=== PATIENT | male | born 1950 | race Caucasian/White ===

== ENCOUNTER → 2016-04-17 | Outpatient (CLI) | payer MEDICARE ==
[2016-04-17 10:13] LABS: CHLORIDE,CL 103 mmol/L (98-110); SODIUM,NA 136 mmol/L (136-146)
== END ==
LOC: MW.CHFP 09:36
PROVIDERS: ATTEND Student in an Organized Health Care Education/Training Program
DX: I10 Essential (primary) hypertension (principal); E78.1 Pure hyperglyceridemia; E11.9 Type 2 diabetes mellitus without complications; K11.8 Other diseases of salivary glands; F41.9 Anxiety disorder, unspecified; E11.65 Type 2 diabetes mellitus with hyperglycemia; E78.5 Hyperlipidemia, unspecified
CPT/HCPCS: 36415; 80053; 80061; 82044; 83036; 99214

== ENCOUNTER → 2016-06-14 | Outpatient (CLI) | payer MEDICARE | LOC: MW.CHFP 11:32 | PROVIDERS: ATTEND Student in an Organized Health Care Education/Training Program | DX: Z01.818 Encounter for other preprocedural examination (principal) | CPT/HCPCS: 36415; 85025; 85610 ==

== ENCOUNTER → 2016-06-15 | Outpatient (CLI) | payer MEDICARE ==
--- NOTE | 2016-06-15 12:36 | US ---
EXAMINATION: Ultrasound guided left parotid mass biopsy HISTORY: Mass COMPARISON: None TECHNIQUE: The procedure, risks, and benefits were discussed with the patient. Informed consent was obtained. A 2.2 cm left parotid nodule is noted which appears predominantly hypoechoic. The overlyi ng area was sterilely prepped and draped. 1% lidocaine was administered for local anesthesia. Using ultrasound guidance a total of 2 18-gauge core biopsies were obtained. The patient tolerated the pro cedure well. There are no immediate complications. IMPRESSION: Successful ultrasound-guided left parotid mass biopsy.
== END ==
LOC: MW.US 09:15
PROVIDERS: ATTEND Student in an Organized Health Care Education/Training Program
DX: K11.8 Other diseases of salivary glands (principal); D11.0 Benign neoplasm of parotid gland
CPT/HCPCS: 20206; 88307

== ENCOUNTER → 2016-06-20 | Outpatient (CLI) | payer MEDICARE | LOC: MW.CHFP 08:00 | PROVIDERS: ATTEND Student in an Organized Health Care Education/Training Program | DX: R22.0 Localized swelling, mass and lump, head (principal) | CPT/HCPCS: G0463 ==

== ENCOUNTER 2020-01-07 15:54 | Emergency (ER) | payer MEDICARE ==
--- NOTE | 2020-01-07 17:07 | EDM.PDOC ---
<Jacob Shearer - Last Filed: 01/07/20 19:30> ED HPI GENERAL MEDICAL PROBLEM - General Chief Complaint: Genitourinary Problem Stated Complaint: PAIN IN GROIN AREA Time Seen by Provider: 01/07/20 15:59 Source of Information: Reports: Patient, Old Records History Limitations: Reports: No Limitations - History of Present Illness INITIAL COMMENTS - FREE TEXT/NARRATIVE: 69/M w/PMH DM, HLD, HTN presenting with hematuria. 2 day history of new gross hematuria, no history of prior. Denies dysuria, fever, urinary frequency, abdominal or back pain, history of prostate disease, renal disease, epistaxis, bloody stools, hemoptysis, night sweats, or weight loss. ROS: A 10-point review of systems was negative, except as noted in the HPI (or in the ROS section of this note). Past medical history: Reviewed, no additional pertinent history. Surgical history: Reviewed in system, no additional pertinent history. Social history: Reviewed in system, no additional pertinent history. Family history: Reviewed in system, no additional pertinent history. PHYSICAL EXAM Vital signs reviewed. Nursing notes reviewed. Constitutional: Awake, alert, non-distressed. Head: Normocephalic, atraumatic. Eyes: EOMI, conjunctiva normal, no discharge, no scleral icterus. Ears, Nose, Throat: External ears and nose normal, moist oral mucosa. Cardiovascular: 2+ radial pulse, capillary refill less than 2 seconds. Pulmonary: normal work of breathing, no accessory muscle use. Abdomen/GI: Soft, nontender, nondistended, no guarding or rigidity, no masses. : Chaperoned exam by RAINA Russell. Uncircumcised penis, no hematuria noted, nontender scrotum, no physical external abnormalities noted to the penis or scrotum. Musculoskeletal: No deformities. Integumentary: Appropriate color for ethnicity, warm, dry, no pallor or jaundice, no rash. Neurologic: Alert, answering questions appropriately, normal speech, no facial droop, moving all extremities well. Psychiatric: Appropriate mood and affect, normal thought process. This patient was seen and evaluated during the 2019 SARS-CoV-2 novel coronavirus pandemic period. Community viral transmission is ongoing at time of this encounter and the emergency department is operating under pandemic response procedures. - Related Data Allergies Allergy/AdvReac Type Severity Reaction Status Date / Time No Known Allergies Allergy Verified 01/07/20 16:42 Home Meds: Home Meds Albuterol [Ventolin HFA] 1 - 2 puff INH Q4H PRN 12/24/17 [History] Aspirin 81 mg PO DAILY 12/24/17 [History] Budesonide/Formoterol [Symbicort 160-4.5 MCG] 2 puff INH DAILY 12/24/17 [History] Cyclobenzaprine [Flexeril] 10 mg PO TID PRN 12/24/17 [History] Escitalopram [Lexapro] 20 mg PO DAILY 12/24/17 [History] Exenatide Microspheres [Bydureon Pen] 2 mg SQ WEEKLY 12/24/17 [History] Fenofibrate 160 mg PO DAILY 12/24/17 [History] Gabapentin [Neurontin] 600 mg PO DAILY 12/24/17 [History] Glimepiride 4 mg PO DAILY 12/24/17 [History] Insulin Detemir [Levemir] 32 units SQ DAILY 12/24/17 [History] Lisinopril/Hydrochlorothiazide [Lisinopril-Hctz 20-12.5 mg Tab] 1 tab PO DAILY 12/24/17 [History] Zolpidem [Ambien] 10 mg PO BEDTIME 12/24/17 [History] atorvaSTATin Calcium [Atorvastatin Calcium] 80 mg PO DAILY 12/24/17 [History] sitaGLIPtin Phos/Metformin HCl [Janumet 50-1,000 MG] 2 tab PO DAILY 12/24/17 [History] Cefdinir [Omnicef] 300 mg PO BID #20 cap 01/07/20 [Rx] Past Medical History HEENT History: Reports: None Cardiovascular History: Reports: High Cholesterol, Hypertension Respiratory History: Reports: COPD Gastrointestinal History: Reports: None Genitourinary History: Reports: None Musculoskeletal History: Reports: None Neurological History: Reports: None Psychiatric History: Reports: Depression Endocrine/Metabolic History: Reports: Diabetes, Type II Dermatologic History: Reports: None - Infectious Disease History Infectious Disease History: Reports: None Social & Family History - Family History Family Medical History: No Pertinent Family History - Tobacco Use Tobacco Use Status *Q: Current Every Day Tobacco User Years of Tobacco use: 50 Packs/Tins Daily: 0.1 - Caffeine Use Caffeine Use: Reports: Coffee - Recreational Drug Use Recreational Drug Use: No ED ROS GENERAL - Review of Systems Review Of Systems: See Below ED EXAM, RENAL/ - Physical Exam Exam: See Below Course - Vital Signs Text/Narrative:: 69-year-old male presenting with new onset painless gross hematuria. Patient hemodynamically stable, afebrile, well-appearing, looks nontoxic. Differential diagnosis includes but is not limited to: UTI, malignancy, coagulopathy, anemia, and many others. 5:42 PM: Physical examination was unremarkable, patient has no pain. Urinalysis is concerning for possible infection. Given the patient's age, we are going to obtain noncontrast and contrasted CT scans of the abdomen/pelvis and labs are pending. 6:20 PM: Hemoglobin and platelet platelet counts are normal, as is white blood cell count. INR is normal. Metabolic panel shows elevated creatinine of 1.7, BUN 32, glucose 179. Urinalysis shows large occult blood, trace ketones, positive nitrites, trace leukocyte esterase, 2+ bacteria. Added on a urine culture. Patient is going for CT scans. Radiology reads pending at time of shift change. Signed out in-person to my colleague Dr. Rose. Please refer to his note for the disposition. Departure - Departure Disposition: Home, Self-Care 01 Condition: Good Clinical Impression: Gross hematuria, Acute kidney injury, UTI, Urinary tract infectious disease, Mass of urinary bladder - Discharge Information Instructions: Urinary Tract Infection, Adult, Cystoscopy Referrals: Dereck Gómez MD [Primary Care Provider] - Forms: ED Department Discharge Additional Instructions: You were seen and evaluated in the ER today secondary to blood in your urine. Your urinalysis reveals that you might have a urinary tract infection contributing to the blood in your urine. Of more concern is the CT scan of your abdomen pelvis. The CT scan of your abdomen pelvis reveals the possibility of having a form of cancer known as transitional cell carcinoma of your urinary bladder. You will be given the phone number for Dr. Maurizio, our urologist to follow-up with so that you can have a cystoscopy performed. This is the only way to tell for sure if you have cancer in your bladder as the cause of the blood in your urine. We will start you on an antibiotic called Omnicef to take twice a day for the next [address] Steven's office below as soon as possible to make an appointment to be seen by them. Please make sure you let them know that you were seen in the ER so they can help you make an appointment to be seen by him as soon as possible. [facility] - Urology [address] [place] [id number] The following information is given to patients seen in the emergency department who are being discharged to home. This information is to outline your options for follow-up care. We provide all patients seen in our emergency department with a follow-up referral. The need for follow-up, as well as the timing and circumstances, are variable depending upon the specifics of your emergency department visit. If you don't have a primary care physician on staff, we will provide you with a referral. We always advise you to contact your personal physician following an emergency department visit to inform them of the circumstance of the visit and for follow-up with them and/or the need for any referrals to a consulting specialist. The emergency department will also refer you to a specialist when appropriate. This referral assures that you have the opportunity for follow-up care with a specialist. All of these measure are taken in an effort to provide you with optimal care, which includes your follow-up. Under all circumstances we always encourage you to contact your private physician who remains a resource for coordinating your care. When calling for follow-up care, please make the office aware that this follow-up is from your recent emergency room visit. If for any reason you are refused follow-up, please contact the [facility] Emergency Department at and asked to speak to the emergency department charge nurse. [facility] - Primary Care [address] [place] [id number] [facility] [address] [place] [address] Sepsis Event Note (ED) - Evaluation Sepsis Screening Result: No Definite Risk <Dutch Rose - Last Filed: 01/07/20 20:13> ED HPI GENERAL MEDICAL PROBLEM - History of Present Illness INITIAL COMMENTS - FREE TEXT/NARRATIVE: 8 PM: Signout received at 7 PM. In brief this is a 69-year-old gentleman who presents ER today with gross hematuria and urinalysis that is equivocal for urinary tract infection. Concern regarding malignancy resulted in obtaining a CT scan of the abdomen pelvis. CT the abdomen pelvis with IV contrast: CT of the abdomen shows no findings in the upper urinary tracts to correlate with history of hematuria.Incidental note made of small renal cyst bilaterally. Minimal cholelithiasis with no sign of acute cholecystitis. CT of the pelvis shows irregular thickening of the anterior and left wall of the urinary bladder raising the possibility of transitional cell carcinoma of the bladder. Recommend correlation with cystoscopy. Mild enlargement of the prostate. CT of the abdomen pelvis was concerning for transitional cell CA of the bladder. Given the abnormal urinalysis, patient will be started on antibiotics for UTI however patient will definitely need to follow-up with urology for a outpatient cystoscopy. I have discussed the results of the CT scan and the plan with the patient and he is in complete agreement with following up with an outpatient. Patient will be given 1 dose of IV Rocephin in the ED and will be started on Omnicef as an outpatient. Reassessment at the time of disposition demonstrates that the patient is in no acute distress. The patient has remained stable throughout the entire ED visit and is without objective evidence for acute process requiring urgent intervention or hospitalization. The patient is stable for discharge, counseling is provided as documented above, discussed symptomatic treatment and specific conditions for return. I have spoken with the patient/caregiver and discussed todays findings, in addition to providing specific details for the plan of care. Questions are answered and there is agreement with the plan. Course - Vital Signs Last Recorded V/S: Last Vital Signs Temp 98.2 F 01/07/20 16:42 Pulse 86 01/07/20 16:42 Resp 18 01/07/20 16:42 BP 144/62 H 01/07/20 16:42 Pulse Ox 92 L 01/07/20 16:42 - Orders/Labs/Meds Orders: Active Orders 24 hr Category Date Time Status CULTURE URINE [RM] Stat Lab 01/07/20 16:38 Received Labs: Laboratory Tests 01/07/20 01/07/20 01/07/20 Range/Units 16:38 17:35 17:35 WBC 9.16 (4.0-11.0) K/uL RBC 4.37 L (4.50-5.90) M/uL Hgb 13.6 (13.0-17.0) g/dL Hct 41.5 (38.0-50.0) % MCV 95.0 (80.0-98.0) fL MCH 31.1 (27.0-32.0) pg MCHC 32.8 (31.0-37.0) g/dL RDW Std Deviation 46.4 (28.0-62.0) fl RDW Coeff of Sherita 13 (11.0-15.0) % Plt Count 201 (150-400) K/uL MPV 13.00 H (7.40-12.00) fL Neut % (Auto) 61.4 (48.0-80.0) % Lymph % (Auto) 21.1 (16.0-40.0) % [place] % (Auto) 7.0 (0.0-15.0) % Eos % (Auto) 10.4 H (0.0-7.0) % Baso % (Auto) 0.1 (0.0-1.5) % Neut # (Auto) 5.6 (1.4-5.7) K/uL Lymph # (Auto) 1.9 (0.6-2.4) K/uL [place] # (Auto) 0.6 (0.0-0.8) K/uL Eos # (Auto) 1.0 H (0.0-0.7) K/uL Baso # (Auto) 0.0 (0.0-0.1) K/uL Nucleated RBC % 0.0 /100WBC Nucleated RBCs # 0 K/uL INR 1.06 Sodium (136-148) mmol/L Potassium (3.5-5.1) mmol/L Chloride (98-107) mmol/L Carbon Dioxide (21.0-32.0) mmol/L BUN (7.0-18.0) mg/dL Creatinine (0.8-1.3) mg/dL Est Cr Clr Drug Dosing mL/min Estimated GFR (MDRD) ml/min Glucose (74-106) mg/dL Calcium (8.5-10.1) mg/dL Total Bilirubin (0.2-1.0) mg/dL AST (15-37) IU/L ALT (14-63) IU/L Alkaline Phosphatase (46-116) U/L Total Protein (6.4-8.2) g/dL Albumin (3.4-5.0) g/dL Globulin (2.6-4.0) g/dL Albumin/Globulin Ratio (0.9-1.6) Urine Color RED Urine Appearance CLOUDY Urine pH 5.0 (5.0-8.0) Ur Specific Draper >= 1.030 (1.001-1.035) Urine Protein 100 H (NEGATIVE) mg/dL Urine Glucose (UA) NEGATIVE (NEGATIVE) mg/dL Urine Ketones TRACE H (NEGATIVE) mg/dL Urine Occult Blood LARGE H (NEGATIVE) Urine Nitrite POSITIVE H (NEGATIVE) Urine Bilirubin NEGATIVE (NEGATIVE) Urine Urobilinogen 0.2 (<2.0) EU/dL Ur Leukocyte Esterase TRACE H (NEGATIVE) Urine RBC TOO NUMEROUS TO CT (0-2/HPF) Urine WBC 8-10 (0-5/HPF) Ur Epithelial Cells RARE (NONE-FEW) Amorphous Sediment MODERATE (NEGATIVE) Urine Bacteria 2+ H (NEGATIVE) 01/07/20 Range/Units 17:35 WBC (4.0-11.0) K/uL RBC (4.50-5.90) M/uL Hgb (13.0-17.0) g/dL Hct (38.0-50.0) % MCV (80.0-98.0) fL MCH (27.0-32.0) pg MCHC (31.0-37.0) g/dL RDW Std Deviation (28.0-62.0) fl RDW Coeff of Sherita (11.0-15.0) % Plt Count (150-400) K/uL MPV (7.40-12.00) fL Neut % (Auto) (48.0-80.0) % Lymph % (Auto) (16.0-40.0) % [place] % (Auto) (0.0-15.0) % Eos % (Auto) (0.0-7.0) % Baso % (Auto) (0.0-1.5) % Neut # (Auto) (1.4-5.7) K/uL Lymph # (Auto) (0.6-2.4) K/uL [place] # (Auto) (0.0-0.8) K/uL Eos # (Auto) (0.0-0.7) K/uL Baso # (Auto) (0.0-0.1) K/uL Nucleated RBC % /100WBC Nucleated RBCs # K/uL INR Sodium 137 (136-148) mmol/L Potassium 4.6 (3.5-5.1) mmol/L Chloride 103 (98-107) mmol/L Carbon Dioxide 26.0 (21.0-32.0) mmol/L BUN 32 H (7.0-18.0) mg/dL Creatinine 1.7 H (0.8-1.3) mg/dL Est Cr Clr Drug Dosing 41.15 mL/min Estimated GFR (MDRD) 39.9 ml/min Glucose 179 H (74-106) mg/dL Calcium 9.4 (8.5-10.1) mg/dL Total Bilirubin 0.3 (0.2-1.0) mg/dL AST 13 L (15-37) IU/L ALT 28 (14-63) IU/L Alkaline Phosphatase 35 L (46-116) U/L Total Protein 7.4 (6.4-8.2) g/dL Albumin 4.3 (3.4-5.0) g/dL Globulin 3.1 (2.6-4.0) g/dL Albumin/Globulin Ratio 1.4 (0.9-1.6) Urine Color Urine Appearance Urine pH (5.0-8.0) Ur Specific [place] (1.001-1.035) Urine Protein (NEGATIVE) mg/dL Urine Glucose (UA) (NEGATIVE) mg/dL Urine Ketones (NEGATIVE) mg/dL Urine Occult Blood (NEGATIVE) Urine Nitrite (NEGATIVE) Urine Bilirubin (NEGATIVE) Urine Urobilinogen (<2.0) EU/dL Ur Leukocyte Esterase (NEGATIVE) Urine RBC (0-2/HPF) Urine WBC (0-5/HPF) Ur Epithelial Cells (NONE-FEW) Amorphous Sediment (NEGATIVE) Urine Bacteria (NEGATIVE) Meds: Medications Discontinued Medications Generic Name Dose Route Start Last Admin Trade Name Freq PRN Reason Stop Dose Admin Lactated Ringer's 1,000 mls @ 999 mls/hr 01/07/20 18:29 01/07/20 19:01 Ringers, Lactated IV 01/07/20 19:29 999 mls/hr .BOLUS ONE Administration Ceftriaxone Sodium/Dextrose 1 50 mls @ 100 mls/hr 01/07/20 19:10 01/07/20 19:29 gm/ Premix IV 01/07/20 19:39 100 mls/hr ONETIME ONE Administration Iopamidol 100 ml 01/07/20 18:28 01/07/20 18:35 Isovue Multipack-370 (76%) IVPUSH 01/07/20 18:29 100 ml ONETIME STA Administration Departure - Departure Time of Disposition: 20:10 Sepsis Event Note (ED) - Focused Exam Vital Signs: Vital Signs Temp Pulse Resp BP Pulse Ox 01/07/20 16:42 98.2 F 86 18 144/62 H 92 L
[2020-01-07 18:14] LABS: POTASSIUM,K 4.6 mmol/L (3.5-5.1)
[2020-01-07] MEDS ORDERED: Iopamidol 755 MG/ML 500 ML Multipack Bottle IVPUSH STA (18:28)
[2020-01-07] MEDS ORDERED: Lactated Ringers 1,000 ML IV ONE (18:29)
[2020-01-07] MEDS ORDERED: cefTRIAXone 1 GM in Premix Bag 1 BAG IV ONE (19:10)
--- NOTE | 2020-01-07 19:19 | CT ---
INDICATION: Gross hematuria for 1 day. COMPARISON: None available TECHNIQUE: CT examination of the abdomen and pelvis was performed before and after the uneventful intravenous administration of 100 cc of Isovue 370 while 3 mm thick axial sections were obtained from the lung bases through the pubic symphysis. Delayed images were not obtained. Oral contrast was not administered. Please note that all CT scans at this facility use dose modulation, iterative reconstruction, and/or weight-based dosing when appropriate to reduce radiation dose to as low as reasonably achievable. FINDINGS: In the abdomen, the liver, spleen, pancreas, and adrenals are normal in appearance. The right kidney has a cyst in the interpolar cortex measuring 1.5 centimeters in diameter. A few other tiny cortical cysts are seen in the right kidney. The left kidney has a 0.9 centimeter cyst arising from the upper pole cortex. There is minimal cholelithiasis, with several tiny dependent calculi in the gallbladder. There is no sign of acute cholecystitis, with no sign of gallbladder wall thickening or pericholecystic fluid. The abdominal aorta is normal in caliber with no sign of dilatation. There is no sign of retroperitoneal mass or adenopathy. The stomach, loops of small bowel, and colon in the abdomen are normal in appearance. There is a tiny fat containing periumbilical hernia. The cecum is flipped up into the right supraumbilical region. The appendix is normal in appearance. The loops of small bowel and colon in the pelvis are normal in appearance. The prostate is mildly enlarged and is otherwise normal in appearance. There is moderate irregular thickening of the anterior and left bladder wall, worrisome for a transitional cell carcinoma of the bladder. Recommend correlation with cystoscopy. There is no sign of pelvic or inguinal mass or adenopathy. There is a moderate-sized left direct inguinal hernia containing a short segment nondistended sigmoid colon. There is no sign of proximal sigmoid colonic obstruction. There is a small fat containing right direct inguinal hernia. There is no sign of free air or free fluid in the abdomen or pelvis. The lung bases are clear. There is fusion of the sacroiliac joints. There is mild anterior wedging of T11 through L1, probably Scheuermann`s disease and unlikely to be of any clinical significance. Incidental note is made of a bone island in the right pubic symphysis. There is mild anterior displacement and anterior angulation of the distal for coccygeal segments, representing an old, healed coccygeal fracture. IMPRESSION: CT of the abdomen shows no findings in the upper urinary tracts to correlate with history of hematuria. Incidental note made of small renal cysts bilaterally. Minimal cholelithiasis with no sign of acute cholecystitis. CT of the pelvis shows irregular thickening of the anterior and left wall of the urinary bladder raising the possibility of transitional cell carcinoma of the bladder. Recommend correlation with cystoscopy. Mild enlargement of the prostate. Please note that all CT scans at this facility use dose modulation, iterative reconstruction, and/or weight-based dosing when appropriate to reduce radiation dose to as low as reasonably achievable. Dictated by Miguel Dubon MD @ Jan 07 2020 7:07PM Signed by Dr. Miguel Dubon @ Jan 07 2020 7:18PM
== END 2020-01-07 20:34 | disposition home or self-care (01) ==
LOC: MW.ED 15:54
DX: R31.0 Gross hematuria (principal); N39.0 Urinary tract infection, site not specified; N32.89 Other specified disorders of bladder; N17.9 Acute kidney failure, unspecified; I10 Essential (primary) hypertension; E78.00 Pure hypercholesterolemia, unspecified; J44.9 Chronic obstructive pulmonary disease, unspecified; E11.9 Type 2 diabetes mellitus without complications; F32.9 Major depressive disorder, single episode, unspecified; F17.210 Nicotine dependence, cigarettes, uncomplicated; Z79.82 Long term (current) use of aspirin; Z79.899 Other long term (current) drug therapy; Z79.4 Long term (current) use of insulin
CPT/HCPCS: 36415; 74178; 80053; 81001; 85025; 85610; 87086; 96365; 99284; J0696; J7120; Q9967

== ENCOUNTER 2021-02-15 17:41 | Emergency (ER) | payer MEDICARE ==
[2021-02-15] MEDS ORDERED: Sodium Chloride 0.9% 2.5 ML Syringe FLUSH PRN (18:06)
[2021-02-15] MEDS ORDERED: Sodium Chloride 0.9% 10 ML Syringe FLUSH PRN (18:06)
[2021-02-15] MEDS ORDERED: methylPREDNISolone Sodium Succinate 125 MG/2 ML SDV IVPUSH ONE (18:12)
[2021-02-15] MEDS ORDERED: Albuterol/Ipratropium 3.0-0.5 MG/3 ML Neb Soln NEB ONE (18:16)
[2021-02-15 19:00] LABS: CORONAVIRUS COVID-19 NAA NEGATIVE (NEGATIVE); INFLUENZA A NAA POSITIVE (NEGATIVE); INFLUENZA B NAA NEGATIVE (NEGATIVE)
[2021-02-15 19:07] LABS: BLOOD UREA NITROGEN,BUN 25 mg/dL (7.0-18.0); CHLORIDE,CL 100 mmol/L (98-107); GLUCOSE RANDOM 207 mg/dL (74-106); POTASSIUM,K 4.6 mmol/L (3.5-5.1); SODIUM,NA 135 mmol/L (136-148)
== END 2021-02-15 19:50 | disposition home or self-care (01) ==
LOC: MW.ED 17:41
DX: J10.1 Influenza due to other identified influenza virus with other respiratory manifestations (principal); J43.9 Emphysema, unspecified; E11.9 Type 2 diabetes mellitus without complications; F17.210 Nicotine dependence, cigarettes, uncomplicated; Z20.822 Contact with and (suspected) exposure to COVID-19; Z79.82 Long term (current) use of aspirin; Z79.899 Other long term (current) drug therapy; Z79.4 Long term (current) use of insulin
CPT/HCPCS: 0240U; 36415; 71045; 80053; 84484; 85025; 93005; 96374; 99285; J2930; J7620-GY

== ENCOUNTER 2021-02-21 07:46 | Inpatient (IN) | payer MEDICARE ==
[2021-02-21] MEDS ORDERED: methylPREDNISolone Sodium Succinate 125 MG/2 ML SDV IVPUSH ONE (08:10)
[2021-02-21] MEDS ORDERED: Sodium Chloride 0.9% 10 ML Syringe FLUSH PRN (08:10)
[2021-02-21] MEDS ORDERED: Sodium Chloride 0.9% 2.5 ML Syringe FLUSH PRN (08:10)
[2021-02-21] MEDS ORDERED: Albuterol/Ipratropium 3.0-0.5 MG/3 ML Neb Soln NEB ONE (08:10)
[2021-02-21] MEDS ORDERED: Diltiazem 25 MG/5 ML SDV IVPUSH ONE (08:13)
[2021-02-21] MEDS ORDERED: Diltiazem 100 MG in Sodium Chloride 0.9% 100 ML IV SCH (08:15)
[2021-02-21 08:31] LABS: BLOOD UREA NITROGEN,BUN 54 mg/dL (7.0-18.0); CARBON DIOXIDE,CO2 25.9 mmol/L (21.0-32.0); CHLORIDE,CL 91 mmol/L (98-107); POTASSIUM,K 4.8 mmol/L (3.5-5.1); SODIUM,NA 126 mmol/L (136-148)
[2021-02-21 08:34] LABS: GLUCOSE RANDOM 523 mg/dL (74-106)
[2021-02-21] MEDS ORDERED: Furosemide 40 MG/4 ML VIAL IVPUSH ONE (08:35)
[2021-02-21] MEDS ORDERED: LORazepam 2 MG/ML SDV IVPUSH ONE (08:38)
[2021-02-21] MEDS ORDERED: Piperacillin/Tazobactam 3.375 GM in Sodium Chloride 0.9% 50 ML IV ONE (08:57)
[2021-02-21] MEDS ORDERED: Sodium Chloride 0.9% 500 ML IV SCH (09:30)
[2021-02-21] MEDS ORDERED: VANCOmycin 1.75 GM/350 ML 1.75 GM in Premix Bag 1 BAG IV SCH (09:30)
[2021-02-21] MEDS ORDERED: Glucagon,Human Recombinant 1 MG Vial IM PRN ×2 (09:34→15:48)
[2021-02-21] MEDS ORDERED: Insulin Regular, Human 100 Units/ML 10 ML Vial IVPUSH ONE ×2 (09:34→15:48)
[2021-02-21] MEDS ORDERED: 50% Dextrose in Water 50 ML Syringe IVPUSH PRN ×2 (09:34→15:48)
[2021-02-21 09:57] LABS: CORONAVIRUS COVID-19 NAA NEGATIVE (NEGATIVE); INFLUENZA A NAA POSITIVE (NEGATIVE); INFLUENZA B NAA NEGATIVE (NEGATIVE)
[2021-02-21] MEDS ORDERED: Haloperidol Lactate 5 MG/ML SDV IM ONE (11:46)
[2021-02-21] MEDS ORDERED: diphenhydrAMINE 50 MG/ML SDV IVPUSH ONE (11:46)
[2021-02-21] MEDS ORDERED: Iopamidol 755 MG/ML 500 ML Multipack Bottle IVPUSH STA (12:46)
[2021-02-21] MEDS ORDERED: Sodium Chloride 0.9% 1,000 ML IV ONE (13:56)
[2021-02-21] MEDS ORDERED: Acetaminophen 325 MG Tab PO PRN (17:00)
[2021-02-21] MEDS ORDERED: Ondansetron 4 MG/2 ML SDV IVPUSH PRN (17:00)
[2021-02-21] MEDS ORDERED: Ondansetron 4 MG Tab.DIS PO PRN (17:00)
[2021-02-21] MEDS ORDERED: Lactated Ringers 1,000 ML IV SCH (18:31)
[2021-02-21] MEDS ORDERED: Insulin Regular in 0.9 % NACL 100 ML IV SCH (18:55)
[2021-02-21] MEDS: Albuterol/Ipratropium 3.0-0.5 MG/3 ML Neb Soln NEB PRN ×2 (19:27→23:58)
[2021-02-21] MEDS: Lactated Ringers 1,000 ML IV SCH (19:55)
[2021-02-21] MEDS ORDERED: Docusate Sodium 100 MG Cap PO PRN (21:00)
[2021-02-21] MEDS: Pantoprazole 40 MG in Sodium Chloride 0.9% 10 ML IVPUSH SCH (21:24)
[2021-02-22] MEDS ORDERED: Diltiazem 100 MG in Sodium Chloride 0.9% 100 ML IV SCH ×2 (00:15→17:45)
[2021-02-22] MEDS: Lactated Ringers 1,000 ML IV SCH ×2 (03:59→21:51)
[2021-02-22 06:40] LABS: CARBON DIOXIDE,CO2 26.9 mmol/L (21.0-32.0); POTASSIUM,K 4.4 mmol/L (3.5-5.1)
[2021-02-22] MEDS ORDERED: Cefepime 2 GM in Premix Bag 1 BAG IV SCH (08:00)
[2021-02-22] MEDS: Hydrochlorothiazide 12.5 MG Cap PO SCH (08:13)
[2021-02-22] MEDS: atorvaSTATin 40 MG Tab PO SCH (08:14)
[2021-02-22] MEDS: Lisinopril 10 MG Tab PO SCH (08:14)
[2021-02-22] MEDS: Sertraline 25 MG Tab PO SCH (08:15)
[2021-02-22] MEDS: Albuterol/Ipratropium 3.0-0.5 MG/3 ML Neb Soln NEB PRN ×4 (08:15→22:09)
[2021-02-22] MEDS: Pantoprazole 40 MG in Sodium Chloride 0.9% 10 ML IVPUSH SCH (08:15)
[2021-02-22] MEDS ORDERED: Levofloxacin/Dextrose 5%-Water 750 MG in Premix Bag 1 BAG IV SCH ×2 (08:30→10:00)
[2021-02-22] MEDS: Cefepime 2 GM in Premix Bag 1 BAG IV SCH ×2 (08:50→21:41)
[2021-02-22] MEDS ORDERED: Non-Formulary Medication 1 Each (Lisinopril/Hydrochlorothiazide [Lisinopril-Hctz 20-12.5 M PO SCH (09:00)
[2021-02-22] MEDS ORDERED: Oseltamivir 75 MG Cap PO SCH (10:45)
[2021-02-22 11:41] LABS: HEMOGLOBIN A1C 10.1 %
[2021-02-22] MEDS: Insulin Detemir 100 Units/ML 3 ML Pen SUBCUT SCH (11:50)
[2021-02-22] MEDS ORDERED: Glucagon,Human Recombinant 1 MG Vial IM PRN (11:52)
[2021-02-22] MEDS ORDERED: 50% Dextrose in Water 50 ML Syringe IVPUSH PRN (11:52)
[2021-02-22] MEDS: Enoxaparin 100 MG/1 ML Syringe SUBCUT SCH ×2 (12:01→23:23)
[2021-02-22] MEDS: Diltiazem IR 30 MG Tab PO SCH ×3 (12:03→23:40)
[2021-02-22] MEDS: predniSONE 20 MG Tab PO ONE ×2 (13:21→17:06)
[2021-02-22] MEDS: Insulin Aspart 100 Units/ML 3 ML Pen SUBCUT SCH (17:06)
[2021-02-22] MEDS: methylPREDNISolone Sodium Succinate 40 MG/1 ML SDV IV SCH (21:05)
[2021-02-22] MEDS: Oseltamivir Phosphate 30 MG Capsule PO SCH ×2 (21:05→23:40)
[2021-02-23] MEDS: Insulin Aspart 100 Units/ML 3 ML Pen SUBCUT SCH ×4 (04:07→17:30)
[2021-02-23] MEDS: Diltiazem IR 30 MG Tab PO SCH (05:55)
[2021-02-23] MEDS: Lactated Ringers 1,000 ML IV SCH ×2 (05:59→17:26)
[2021-02-23] MEDS: Albuterol/Ipratropium 3.0-0.5 MG/3 ML Neb Soln NEB PRN ×5 (06:34→23:56)
[2021-02-23] MEDS: Diltiazem 100 MG in Sodium Chloride 0.9% 100 ML IV SCH ×2 (07:23→16:51)
[2021-02-23 07:25] LABS: CARBON DIOXIDE,CO2 25.7 mmol/L (21.0-32.0); POTASSIUM,K 4.6 mmol/L (3.5-5.1)
[2021-02-23] MEDS: Pantoprazole 40 MG in Sodium Chloride 0.9% 10 ML IVPUSH SCH (07:59)
[2021-02-23] MEDS: methylPREDNISolone Sodium Succinate 40 MG/1 ML SDV IV SCH ×2 (08:00→20:40)
[2021-02-23] MEDS ORDERED: predniSONE 20 MG Tab PO SCH (08:00)
[2021-02-23] MEDS: Oseltamivir Phosphate 30 MG Capsule PO SCH ×2 (08:01→20:38)
[2021-02-23] MEDS: Lisinopril 10 MG Tab PO SCH (08:01)
[2021-02-23] MEDS: Sertraline 25 MG Tab PO SCH (08:01)
[2021-02-23] MEDS: atorvaSTATin 40 MG Tab PO SCH (08:01)
[2021-02-23] MEDS: Hydrochlorothiazide 12.5 MG Cap PO SCH (08:02)
[2021-02-23] MEDS: Insulin Detemir 100 Units/ML 3 ML Pen SUBCUT SCH (08:03)
[2021-02-23] MEDS: Cefepime 2 GM in Premix Bag 1 BAG IV SCH ×2 (09:06→20:39)
[2021-02-23] MEDS ORDERED: Insulin Glargine,Human Rec. Analog 100 Units/ML 3 ML Pen SUBCUT STA (09:48)
[2021-02-23] MEDS: Enoxaparin 100 MG/1 ML Syringe SUBCUT SCH ×2 (10:35→22:51)
[2021-02-23] MEDS: Levofloxacin/Dextrose 5%-Water 750 MG in Premix Bag 1 BAG IV SCH (10:35)
[2021-02-23] MEDS: Insulin Regular in 0.9 % NACL 100 ML IV SCH (22:58)
[2021-02-24] MEDS: Lactated Ringers 1,000 ML IV SCH ×3 (01:31→17:25)
[2021-02-24] MEDS: Albuterol/Ipratropium 3.0-0.5 MG/3 ML Neb Soln NEB PRN ×4 (04:01→20:32)
[2021-02-24] MEDS ORDERED: Benzonatate 100 MG Cap PO PRN (05:15)
[2021-02-24] MEDS: Insulin Aspart 100 Units/ML 3 ML Pen SUBCUT SCH ×3 (07:32→17:46)
[2021-02-24] MEDS: Lisinopril 10 MG Tab PO SCH (08:05)
[2021-02-24] MEDS: atorvaSTATin 40 MG Tab PO SCH (08:06)
[2021-02-24] MEDS: Oseltamivir Phosphate 30 MG Capsule PO SCH ×2 (08:06→20:32)
[2021-02-24] MEDS: Sertraline 25 MG Tab PO SCH (08:06)
[2021-02-24] MEDS: methylPREDNISolone Sodium Succinate 40 MG/1 ML SDV IV SCH ×2 (08:07→20:31)
[2021-02-24] MEDS: Pantoprazole 40 MG in Sodium Chloride 0.9% 10 ML IVPUSH SCH (08:12)
[2021-02-24] MEDS: Hydrochlorothiazide 12.5 MG Cap PO SCH (08:12)
[2021-02-24 08:25] LABS: CARBON DIOXIDE,CO2 28.8 mmol/L (21.0-32.0); POTASSIUM,K 4.2 mmol/L (3.5-5.1)
[2021-02-24] MEDS: Insulin Glargine,Human Rec. Analog 100 Units/ML 3 ML Pen SUBCUT SCH (08:44)
[2021-02-24] MEDS ORDERED: VANCOmycin 1.5 GM/300 ML 1.5 GM in Premix Bag 1 BAG IV SCH (09:00)
[2021-02-24] MEDS: Cefepime 2 GM in Premix Bag 1 BAG IV SCH ×2 (09:42→20:32)
[2021-02-24] MEDS: Levofloxacin/Dextrose 5%-Water 750 MG in Premix Bag 1 BAG IV SCH (10:55)
[2021-02-24] MEDS: Enoxaparin 100 MG/1 ML Syringe SUBCUT SCH ×2 (10:55→23:08)
[2021-02-24] MEDS: Diltiazem 100 MG in Sodium Chloride 0.9% 100 ML IV SCH (12:40)
[2021-02-24] MEDS ORDERED: Iopamidol 755 MG/ML 500 ML Multipack Bottle IVPUSH STA (14:21)
[2021-02-24] MEDS: Morphine 2 MG/ML SYRINGE IVPUSH PRN ×2 (16:24→21:24)
[2021-02-25] MEDS: Albuterol/Ipratropium 3.0-0.5 MG/3 ML Neb Soln NEB PRN ×2 (00:20→05:46)
[2021-02-25] MEDS: Insulin Regular in 0.9 % NACL 100 ML IV SCH (00:26)
[2021-02-25] MEDS: Morphine 2 MG/ML SYRINGE IVPUSH PRN (01:58)
[2021-02-25 07:51] LABS: BLOOD UREA NITROGEN,BUN 71 mg/dL (7.0-18.0); CARBON DIOXIDE,CO2 26.2 mmol/L (21.0-32.0); CHLORIDE,CL 107 mmol/L (98-107); GLUCOSE RANDOM 146 mg/dL (74-106); POTASSIUM,K 4.7 mmol/L (3.5-5.1); SODIUM,NA 143 mmol/L (136-148)
[2021-02-25] MEDS: Insulin Aspart 100 Units/ML 3 ML Pen SUBCUT SCH (08:25)
[2021-02-25] MEDS: Insulin Glargine,Human Rec. Analog 100 Units/ML 3 ML Pen SUBCUT SCH (08:25)
[2021-02-25] MEDS: Pantoprazole 40 MG in Sodium Chloride 0.9% 10 ML IVPUSH SCH (08:30)
[2021-02-25] MEDS: methylPREDNISolone Sodium Succinate 40 MG/1 ML SDV IV SCH (08:33)
[2021-02-25] MEDS: Sertraline 25 MG Tab PO SCH (08:33)
[2021-02-25] MEDS: Lisinopril 10 MG Tab PO SCH (08:34)
[2021-02-25] MEDS: atorvaSTATin 40 MG Tab PO SCH (08:34)
[2021-02-25] MEDS: Hydrochlorothiazide 12.5 MG Cap PO SCH (08:35)
== END 2021-02-25 09:30 | DRG 871 ==
LOC: MW.ED 07:46 → MW.ICU 13:55 → UNDOADMIN 14:49 → MW.ICU 14:49
PROVIDERS: ADMIT Student in an Organized Health Care Education/Training Program; ATTEND Student in an Organized Health Care Education/Training Program
DX: A41.89 Other specified sepsis (principal); I11.0 Hypertensive heart disease with heart failure; J18.9 Pneumonia, unspecified organism; J96.01 Acute respiratory failure with hypoxia; I50.1 Left ventricular failure, unspecified; I48.91 Unspecified atrial fibrillation; E11.65 Type 2 diabetes mellitus with hyperglycemia; N17.9 Acute kidney failure, unspecified; E87.1 Hypo-osmolality and hyponatremia; J10.1 Influenza due to other identified influenza virus with other respiratory manifestations; J43.9 Emphysema, unspecified; K80.80 Other cholelithiasis without obstruction; E78.00 Pure hypercholesterolemia, unspecified; E11.9 Type 2 diabetes mellitus without complications; F32.A Depression, unspecified; Z79.4 Long term (current) use of insulin; Z79.899 Other long term (current) drug therapy; Z20.822 Contact with and (suspected) exposure to COVID-19
CPT/HCPCS: 0240U; 36415; 36600; 71045; 71275; 74018; 74177; 76705; 80053; 80202; 81001; 82803; 82947; 83036; 83605; 83735; 83880; 84484; 85025; 85027; 85379; 85610; 87040; 87077; 87186; 93005; 94640; 94660; 96365; 96366; 96368; 96372; 96375; 96376; 99291; 99292; 99223; 99233; 99239; A9270-GY; C9113; J0692; J1200; J1630; J1650; J1815; J1815-GY; J1940; J1956; J2060; J2270; J2405; J2543; J2920; J2930; J3370; J3490; J7030; J7040; J7050; J7120; J7620-GY; Q9967

== ENCOUNTER 2021-10-01 10:43 | Inpatient (IN) | payer MEDICARE ==
[2021-10-01] MEDS ORDERED: Albuterol/Ipratropium 3.0-0.5 MG/3 ML Neb Soln NEB ONE ×2 (10:45→11:02)
[2021-10-01] MEDS ORDERED: Sodium Chloride 0.9% 10 ML Syringe FLUSH PRN (10:45)
[2021-10-01] MEDS ORDERED: Sodium Chloride 0.9% 2.5 ML Syringe FLUSH PRN (10:45)
[2021-10-01] MEDS ORDERED: Aspirin 81 MG Tab.Chew PO ONE (10:47)
[2021-10-01] MEDS ORDERED: Sodium Chloride 0.9% 1,000 ML IV ONE (10:47)
[2021-10-01] MEDS ORDERED: Ondansetron 4 MG/2 ML SDV ONE (10:47)
[2021-10-01] MEDS ORDERED: Ondansetron 4 MG/2 ML SDV IVPUSH ONE (10:47)
[2021-10-01] MEDS ORDERED: Ciprofloxacin in D5W 400 MG in Premix Bag 1 BAG IV ONE ×2 (10:49)
[2021-10-01] MEDS ORDERED: Cefepime 2 GM in Sodium Chloride 0.9% 50 ML IV ONE (10:49)
[2021-10-01] MEDS ORDERED: methylPREDNISolone Sodium Succinate 125 MG/2 ML SDV IVPUSH ONE (11:09)
[2021-10-01] MEDS ORDERED: methylPREDNISolone Sodium Succinate 125 MG/2 ML SDV ONE (11:10)
[2021-10-01] MEDS ORDERED: Cefepime 2 GM in Premix Bag 1 BAG IV ONE (11:15)
[2021-10-01 11:24] LABS: CARBON DIOXIDE,CO2 26.1 mmol/L (21.0-32.0); POTASSIUM,K 4.2 mmol/L (3.5-5.1)
[2021-10-01] MEDS ORDERED: 50% Dextrose in Water 50 ML Syringe IVPUSH PRN ×2 (18:09→21:10)
[2021-10-01] MEDS ORDERED: Glucagon,Human Recombinant 1 MG Vial IM PRN ×2 (18:09→21:10)
[2021-10-01] MEDS ORDERED: Iopamidol 755 MG/ML 500 ML Multipack Bottle IVPUSH STA (18:14)
[2021-10-01] MEDS ORDERED: Sodium Chloride 0.9% 1,000 ML IV SCH (18:15)
[2021-10-01] MEDS ORDERED: Ondansetron 4 MG/2 ML SDV IVPUSH PRN (18:37)
[2021-10-01] MEDS ORDERED: Polyethylene Glycol 3350 Powder 17 GM Packet PO PRN (18:37)
[2021-10-01] MEDS ORDERED: Acetaminophen 325 MG Tab PO PRN (18:37)
[2021-10-01] MEDS ORDERED: VANCOmycin 1.5 GM/300 ML 1.5 GM in Premix Bag 1 BAG IV ONE (18:45)
[2021-10-01] MEDS: Albuterol/Ipratropium 3.0-0.5 MG/3 ML Neb Soln NEB PRN (19:47)
[2021-10-01] MEDS: Cefepime 2 GM in Premix Bag 1 BAG IV SCH (20:02)
[2021-10-01] MEDS ORDERED: Heparin Sodium 5,000 Units/ML Vial SUBCUT SCH (21:15)
[2021-10-01] MEDS: Heparin Sodium 5,000 Units/ML Vial SUBCUT SCH (22:25)
[2021-10-02] MEDS: Cefepime 2 GM in Premix Bag 1 BAG IV SCH ×2 (02:17→11:02)
[2021-10-02] MEDS: Albuterol/Ipratropium 3.0-0.5 MG/3 ML Neb Soln NEB PRN ×2 (05:08→09:59)
[2021-10-02 06:55] LABS: CARBON DIOXIDE,CO2 23.7 mmol/L (21.0-32.0)
[2021-10-02] MEDS: Insulin Aspart 100 Units/ML 3 ML Pen SUBCUT SCH ×2 (08:07→11:51)
[2021-10-02] MEDS ORDERED: Insulin Detemir 100 Units/ML 3 ML Pen SUBCUT SCH (09:00)
[2021-10-02] MEDS: Heparin Sodium 5,000 Units/ML Vial SUBCUT SCH (09:51)
[2021-10-02] MEDS: Albuterol/Ipratropium 3.0-0.5 MG/3 ML Neb Soln NEB SCH ×2 (10:57→14:23)
[2021-10-02] MEDS ORDERED: methylPREDNISolone Sodium Succinate 125 MG/2 ML SDV IVPUSH SCH (11:00)
[2021-10-02] MEDS ORDERED: Insulin Aspart 100 Units/ML 3 ML Pen SUBCUT SCH (17:30)
== END 2021-10-02 15:25 | disposition left against medical advice (07) | DRG 689 ==
LOC: MW.ED 10:43 → MW.ICU 18:11
PROVIDERS: ADMIT Internal Medicine; ATTEND Internal Medicine
DX: N39.0 Urinary tract infection, site not specified (principal); J96.20 Acute and chronic respiratory failure, unspecified whether with hypoxia or hypercapnia; C64.9 Malignant neoplasm of unspecified kidney, except renal pelvis; J43.9 Emphysema, unspecified; N18.9 Chronic kidney disease, unspecified; N32.89 Other specified disorders of bladder; E78.00 Pure hypercholesterolemia, unspecified; Z20.822 Contact with and (suspected) exposure to COVID-19; I10 Essential (primary) hypertension; F32.A Depression, unspecified; E11.9 Type 2 diabetes mellitus without complications; Z79.4 Long term (current) use of insulin; Z79.899 Other long term (current) drug therapy
CPT/HCPCS: 36415; 71045; 71275; 74176; 80053; 81001; 82803; 83605; 83735; 84484; 85025; 85610; 87086; 93005; 94660; A9270; J0692; J0744; J2405; J2930; J3490; J7030; U0002; 82947; 84100; 93010; 96365; 96367; 96375; 99223; 99239; 99284; 99285-25; J1644; J1815-GY; J3370; J7620-GY; Q9967

== ENCOUNTER 2021-10-06 13:41 | Emergency (ER) | payer MEDICARE ==
[2021-10-06] MEDS ORDERED: Albuterol/Ipratropium 3.0-0.5 MG/3 ML Neb Soln NEB STA ×2 (14:04→14:05)
[2021-10-06 14:26] LABS: CARBON DIOXIDE,CO2 30.7 mmol/L (21.0-32.0); POTASSIUM,K 3.6 mmol/L (3.5-5.1)
[2021-10-06] MEDS ORDERED: methylPREDNISolone Sodium Succinate 125 MG/2 ML SDV IVPUSH STA (14:33)
[2021-10-06] MEDS ORDERED: Magnesium Sulfate/Water 2 GM in Premix Bag 1 BAG IV ONE (14:50)
[2021-10-06] MEDS ORDERED: Sodium Chloride 0.9% 1,000 ML IV ONE (16:41)
== END 2021-10-06 19:06 | disposition home or self-care (01) ==
LOC: MW.ED 13:41
DX: R29.810 Facial weakness (principal); E11.22 Type 2 diabetes mellitus with diabetic chronic kidney disease; I12.9 Hypertensive chronic kidney disease with stage 1 through stage 4 chronic kidney disease, or unspecified chronic kidney disease; N18.9 Chronic kidney disease, unspecified; J44.9 Chronic obstructive pulmonary disease, unspecified; E78.00 Pure hypercholesterolemia, unspecified; E78.5 Hyperlipidemia, unspecified; Z20.822 Contact with and (suspected) exposure to COVID-19; Z79.899 Other long term (current) drug therapy; Z79.4 Long term (current) use of insulin
CPT/HCPCS: 36415; 70450; 70496; 71045; 80053; 81001; 82947; 83605; 83735; 84484; 85025; 85610; 85730; 86140; 87040; 93005; 96361; 96365; 96375; 99285; J2930; J3475; J7030; U0002; J7620-GY

== ENCOUNTER 2021-12-12 13:28 | Emergency (ER) | payer MEDICARE ==
[2021-12-12] MEDS ORDERED: LORazepam 2 MG/ML SDV IVPUSH ONE (13:43)
[2021-12-12] MEDS ORDERED: Glucagon,Human Recombinant 1 MG Vial IVPUSH ONE (13:44)
[2021-12-12] MEDS ORDERED: Ondansetron 4 MG/2 ML SDV IVPUSH ONE (13:44)
[2021-12-12 14:34] LABS: CARBON DIOXIDE,CO2 29.1 mmol/L (21.0-32.0); POTASSIUM,K 3.8 mmol/L (3.5-5.1)
== END 2021-12-12 14:31 | disposition home or self-care (01) ==
LOC: MW.ED 13:28
DX: K22.2 Esophageal obstruction (principal); J44.9 Chronic obstructive pulmonary disease, unspecified; E11.9 Type 2 diabetes mellitus without complications; Z79.899 Other long term (current) drug therapy
CPT/HCPCS: 36415; 80053; 85025; 93005; 99283

== ENCOUNTER 2022-01-28 15:15 | Emergency (ER) | payer OTHER, MEDICARE ==
[2022-01-28 15:49] LABS: BLOOD UREA NITROGEN,BUN 40 mg/dL (7.0-18.0); CHLORIDE,CL 99 mmol/L (98-107); GLUCOSE RANDOM 298 mg/dL (74-106); LIPASE 335 U/L (73-393); POTASSIUM,K 4.8 mmol/L (3.5-5.1); SODIUM,NA 134 mmol/L (136-148)
[2022-01-28 15:51] LABS: ESTIMATED GFR 45 mL/min (>60)
== END 2022-01-28 16:15 | disposition home or self-care (01) ==
LOC: MW.ED 15:15
DX: S09.90XA Unspecified injury of head, initial encounter (principal); E11.65 Type 2 diabetes mellitus with hyperglycemia; N17.9 Acute kidney failure, unspecified; E78.00 Pure hypercholesterolemia, unspecified; I10 Essential (primary) hypertension; J44.9 Chronic obstructive pulmonary disease, unspecified; Z79.4 Long term (current) use of insulin; Z79.899 Other long term (current) drug therapy; V43.52XA Car driver injured in collision with other type car in traffic accident, initial encounter; Y92.410 Unspecified street and highway as the place of occurrence of the external cause
CPT/HCPCS: 36415; 70450; 70450-26; 71045; 71045-26; 72125; 72125-26; 72170; 72170-26; 80053; 80307; 83690; 83735; 85025; 85610; 93010; 99283; 99285-25

== ENCOUNTER 2022-01-30 05:41 | Emergency (ER) | payer MEDICARE ==
[2022-01-30] MEDS ORDERED: Acetaminophen/Butalbital/Caffeine 325-50-40 MG Tab PO ONE (05:54)
[2022-01-30] MEDS ORDERED: Ibuprofen 600 MG Tab PO ONE (05:54)
== END 2022-01-30 06:39 | disposition home or self-care (01) ==
LOC: MW.ED 05:41
DX: R51.9 Headache, unspecified (principal); E78.00 Pure hypercholesterolemia, unspecified; I10 Essential (primary) hypertension; E11.9 Type 2 diabetes mellitus without complications; J44.9 Chronic obstructive pulmonary disease, unspecified; Z79.899 Other long term (current) drug therapy; Z79.4 Long term (current) use of insulin
CPT/HCPCS: 70450; 99284; A9270

== ENCOUNTER 2022-01-31 19:00 | Emergency (ER) | payer MEDICARE | END 2022-01-31 21:21 | disposition home or self-care (01) | LOC: MW.ED 19:00 | DX: R51.9 Headache, unspecified (principal); E78.00 Pure hypercholesterolemia, unspecified; I10 Essential (primary) hypertension; J44.9 Chronic obstructive pulmonary disease, unspecified; E11.9 Type 2 diabetes mellitus without complications; Z79.4 Long term (current) use of insulin; Z79.899 Other long term (current) drug therapy | CPT/HCPCS: 99283 ==